=== PATIENT | female | born 1955 | race Caucasian/White ===

== ENCOUNTER 2017-09-04 07:52 | Day surgery (SDC) | payer BC, OTHER ==
[~2017-09-04] VITALS: Ht 160 cm; Wt 113.4 kg
[~2017-09-04 07:52] MED LIST: ATOR10 PO; DOCU-116 PO; DULO60CA63 PO; FERR325T22 PO; GABA-583 PO; MIRA50TA PO; PANT40TA25 PO; SODIUM CHLORIDE 0.9% 1000ML 1,000 ML IV ONE; TRAZ150T79 PO; TYL3 PO
[2017-09-04 08:38] VITALS: BP 136/78
[2017-09-04] MEDS ORDERED: PROPOFOL 10 MG/ML 20ML VIAL IV ONE ×3 (09:52→10:05)
[2017-09-04] MEDS ORDERED: FENTANYL CITRATE PF 50 MCG/1 ML 2ML VIAL ONE (10:05)
== END 2017-09-04 10:51 | disposition home or self-care (01) ==
LOC: ENDO 07:52 → DAH 07:52 → ENDO 10:51
PROVIDERS: ATTEND Internal Medicine Gastroenterology
DX: Z09 Encounter for follow-up examination after completed treatment for conditions other than malignant neoplasm (principal); K57.30 Diverticulosis of large intestine without perforation or abscess without bleeding; K31.89 Other diseases of stomach and duodenum; K29.70 Gastritis, unspecified, without bleeding; F32.9 Major depressive disorder, single episode, unspecified; E66.01 Morbid (severe) obesity due to excess calories; G47.33 Obstructive sleep apnea (adult) (pediatric); E78.5 Hyperlipidemia, unspecified; Z87.19 Personal history of other diseases of the digestive system; Z96.60 Presence of unspecified orthopedic joint implant; Z68.42 Body mass index [BMI] 45.0-49.9, adult
CPT/HCPCS: 43239; 45378; 88305; 88312; A4606; J2704 ×3; J3010; J7030

== ENCOUNTER → 2021-06-19 | Outpatient (CLI) | payer OTHER ==
[~2021-06-19] MED LIST changes: -DULO60CA63 PO; +DULO60CA64 PO; -PANT40TA25 PO; +PANT40TA55 PO; -SODIUM CHLORIDE 0.9% 1000ML 1,000 ML IV ONE
== END | disposition home or self-care (01) ==
LOC: OIH 15:27
PROVIDERS: ATTEND Internal Medicine
DX: Z13.6 Encounter for screening for cardiovascular disorders (principal)
CPT/HCPCS: 75571